=== PATIENT | female | born 1965 | race Caucasian/White ===

== ENCOUNTER → 2017-06-26 | Outpatient (CLI) | payer MEDICARE ==
[~2017-06-26] MED LIST: ALBU90OI INH; AMIT50 PO; AMIT75 PO; AMOCLA875 PO; Augmentin 875-1 EACH PO; CIPR750 PO; CLIN150 PO; DOXY100 PO; DULO60; GABA300 PO; HYDACE5 PO; IBUP800 PO; LORCET HD 10-31 EACH PO; MELO7.5 PO; MULVITMIND PO; NAPR550 PO; OXYB5 PO; Omeprazole20 M1; PRAV20 PO; PRED10 PO; PRED20 PO; Prilosec20 MG PO; Prozac20 MG PO
[2017-06-26 10:40] LABS: Alanine Aminotransfer (ALT/SGP 27 U/L (12-78); Albumin, Blood 3.9 g/dL (3.4-5.0); Alk Phos 154 U/L (50-136); Anion Gap 7 mmol/L (6-16); Aspartate Aminotrans (AST/SGOT 19 U/L (12-37); Bilirubin, Total 0.5 mg/dL (0.1-1.0); Blood Urea Nitrogen 13 mg/dL (8-24); Bun/Creatinine Ratio 19.6 (12.0-20.0); CHOL/HDL RATIO 3.4; CO2, Blood 27 mmol/L (21-32); Calcium, Blood 9.2 mg/dL (8.5-10.1); Chloride, Blood 105 mmol/L (98-108); Cholesterol 183 mg/dL (50-200); Creatinine, Blood 0.66 mg/dL (0.40-1.00); Globulin, Blood 3.8 g/dL (2.2-4.0); Glomerular Filtration Rate >60 (60-); Glucose, Blood 99 mg/dL (70-99); HDL Cholesterol 54 mg/dL (>39); LDL/HDL RATIO 1.9; Low Density Lipoprotein Chol 105 mg/dL (0-110); Potassium, Blood 4.3 mmol/L (3.5-5.5); Sodium, Blood 139 mmol/L (136-145); Total Protein, Blood 7.7 g/dL (6.4-8.2); Triglycerides 119 mg/dL (30-160); Very Low Density Lipoprot Chol 23 mg/dL (6-32)
== END | disposition home or self-care (01) ==
LOC: OLS 09:18
PROVIDERS: Physician Assistant
DX: R74.8 Abnormal levels of other serum enzymes (principal); R53.83 Other fatigue
CPT/HCPCS: 36415; 80053; 80061

== ENCOUNTER 2017-09-14 11:16 | Emergency (ER) | payer MEDICARE ==
[~2017-09-14] VITALS: Ht 167.6 cm; Wt 99.8 kg
== END 2017-09-14 13:15 | disposition home or self-care (01) ==
LOC: ER 11:16
DX: S63.501A Unspecified sprain of right wrist, initial encounter (principal); F17.210 Nicotine dependence, cigarettes, uncomplicated; Z88.5 Allergy status to narcotic agent; Z79.899 Other long term (current) drug therapy; Z79.1 Long term (current) use of non-steroidal anti-inflammatories (NSAID); W01.0XXA Fall on same level from slipping, tripping and stumbling without subsequent striking against object, initial encounter
CPT/HCPCS: 29125; 73110; 99283

== ENCOUNTER 2018-05-17 08:26 | Emergency (ER) | payer MEDICARE ==
[~2018-05-17] VITALS: Ht 167.6 cm; Wt 99.8 kg
[2018-05-17] MEDS ORDERED: TOLT4 PO (08:39)
[2018-05-17] MEDS ORDERED: IBUP400 PO (09:59)
[2018-05-17] MEDS ORDERED: Percocet 5-3251 EACH PO (09:59)
== END 2018-05-17 10:20 | disposition home or self-care (01) ==
LOC: ER 08:26
DX: M54.42 Lumbago with sciatica, left side (principal); M43.17 Spondylolisthesis, lumbosacral region; G89.29 Other chronic pain; M48.56XA Collapsed vertebra, not elsewhere classified, lumbar region, initial encounter for fracture; F17.210 Nicotine dependence, cigarettes, uncomplicated; Z88.5 Allergy status to narcotic agent; Z79.899 Other long term (current) drug therapy
CPT/HCPCS: 72100; 96372; 99283-25; J1170; J1885

== ENCOUNTER 2018-06-17 11:03 | Emergency (ER) | payer MEDICARE ==
[~2018-06-17] VITALS: Ht 167.6 cm; Wt 99.8 kg
[~2018-06-17 11:03] MED LIST changes: +IBUP400 PO; +Percocet 5-3251 EACH PO; +TOLT4 PO
[2018-06-17] MEDS ORDERED: Zantac150 MG PO (12:42)
[2018-06-17] MEDS ORDERED: TOLT4 PO (12:43)
[2018-06-17] MEDS ORDERED: CYCL10 PO (12:53)
[2018-06-17] MEDS ORDERED: Voltaren100 GM TOP (12:53)
[2018-06-17] MEDS ORDERED: HYDR1TAB94 PO (12:53)
== END 2018-06-17 13:00 | disposition home or self-care (01) ==
LOC: ER 11:03
DX: S30.0XXA Contusion of lower back and pelvis, initial encounter (principal); W00.0XXA Fall on same level due to ice and snow, initial encounter; Z88.5 Allergy status to narcotic agent; Z79.899 Other long term (current) drug therapy; Z79.891 Long term (current) use of opiate analgesic; F17.210 Nicotine dependence, cigarettes, uncomplicated
CPT/HCPCS: 72100; 72220; 99283-25

== ENCOUNTER 2018-08-29 08:52 | Inpatient (IN) | payer MEDICARE ==
[~2018-08-29] VITALS: Ht 167.6 cm; Wt 104.5 kg
[~2018-08-29 08:52] MED LIST changes: +CYCL10 PO; +HYDR1TAB94 PO; +Voltaren100 GM TOP; +Zantac150 MG PO
[2018-08-29 09:39] LABS: Hematocrit 33.6 % (33.0-51.0); Hemoglobin 11.5 g/dL (11.5-16.0); Mean Corpuscular HGB 33.7 pg (26.0-34.0); Mean Corpuscular HGB Conc 34.2 g/dL (31.5-36.5); Mean Corpuscular Volume 99 fL (80-100); Mean Platelet Volume 11.2 fL (9.1-12.4); Platelet Count 219 K/mm3 (150-400); RDW Coefficient Variation 12.9 % (11.7-14.2); RDW Standard Deviation 46.5 fL (35.1-46.3); Red Blood Cell Count 3.41 M/mm3 (3.80-5.20)
[2018-08-29 09:57] LABS: Albumin, Blood 2.9 g/dL (3.4-5.0); Albumin/Globulin Ratio 0.7 (0.8-1.8); Bun/Creatinine Ratio 22.6 (12.0-20.0); Calcium, Blood 8.8 mg/dL (8.5-10.1); Creatinine, Blood 1.06 mg/dL (0.40-1.00); Potassium, Blood 3.5 mmol/L (3.5-5.5); Total Protein, Blood 6.9 g/dL (6.4-8.2)
[2018-08-29 10:05] LABS: BAND PERCENT MAN 3 % (0-8); BASOPHILS PERCENT MAN 0 % (0-2); EOSINOPHILS ABSOLUTE MAN 0.32 K/mm3 (0.00-0.68); EOSINOPHILS PERCENT MAN 2 % (0-6); LYMPHOCYTES ABSOLUTE MAN 2.44 K/mm3 (0.84-5.20); LYMPHOCYTES PERCENT MAN 15 % (21-46); MONOCYTES ABSOLUTE MAN 0.48 K/mm3 (0.16-1.47); MONOCYTES PERCENT MAN 3 % (4-13); NEUTROPHILS ABSOLUTE MAN 13.04 K/mm3 (1.96-9.15); SEG NEUTROPHILS PERCENT MAN 77 % (41-73); TOTAL CELLS COUNTED 100
[2018-08-29] MEDS ORDERED: MELATONIN5 M1 PO (11:59)
[2018-08-29] MEDS ORDERED: NAPR500 PO (12:06)
[2018-08-29 16:14] LABS: Adenovirus F 40/41 Not Detected (NOT DETECT); Astrovirus Not Detected (NOT DETECT); Campylobacter Sp Not Detected (NOT DETECT); Cryptosporidium Not Detected (NOT DETECT); Cyclospora Cayetanensis Not Detected (NOT DETECT); E. Coli O157 Not Detected (NOT DETECT); Entamoeba Histolytica Not Detected (NOT DETECT); Enteroaggregative E. coli-EAEC Not Detected (NOT DETECT); Enteropathogenic E. coli-EPEC Not Detected (NOT DETECT); Enterotoxigenic E. coli-ETEC Not Detected (NOT DETECT); Giardia Lamblia Not Detected (NOT DETECT); Norovirus GI/GII Not Detected (NOT DETECT); Plesiomonas Shigelloides Not Detected (NOT DETECT); Rotavirus A Not Detected (NOT DETECT); Salmonella Sp Not Detected (NOT DETECT); Sapovirus Not Detected (NOT DETECT); Shiga Toxin-prod E. coli-STEC Not Detected (NOT DETECT); Shigella/Enteroin E. coli-EIEC Not Detected (NOT DETECT); Vibrio Cholerae Not Detected (NOT DETECT); Vibrio Sp Not Detected (NOT DETECT); Yersinia Enterocolitica Not Detected (NOT DETECT)
--- NOTE | 2018-08-29 16:27 | NUR ---
PATIENT ADMISSION THE PATIENT WAS ADMITTED FROM THE ER TO ROOM #328. THE PATIENT ARRIVED ON THE FLOOR AT 1150 VIA STRECHER. THE PATIENT WAS ADMITTED FOR COLITIS AND WAS EXPERIENCING ABDOMINAL PAIN. THE PATIENT'S VITALS WERE WNL, SHE WAS A&O X4 AND HER LUNG SOUNDS WERE DIMINISHED THROUGHOUT. THE PATIENT'S ADMISSION WA COMPLETED AT THAT TIME. THE PATIENT IS RESTING AT THIS TIME, WILL CONTINUE TO MONITOR.
[2018-08-30 04:48] LABS: Hematocrit 31.6 % (33.0-51.0); Hemoglobin 10.3 g/dL (11.5-16.0); Mean Corpuscular HGB 32.8 pg (26.0-34.0); Mean Corpuscular HGB Conc 32.6 g/dL (31.5-36.5); Mean Corpuscular Volume 101 fL (80-100); Mean Platelet Volume 11.3 fL (9.1-12.4); Platelet Count 205 K/mm3 (150-400); RDW Standard Deviation 47.8 fL (35.1-46.3); Red Blood Cell Count 3.14 M/mm3 (3.80-5.20); White Blood Cell Count 13.17 K/mm3 (4.00-11.30)
--- NOTE | 2018-08-30 04:58 | NUR ---
DR Bain updated on PTs hypotension last check and running low. Dilaudid decreased from 1 mg to 0.5 mg and give an additional liter of lactated ringers. PT voids large amts, stool culture negative. UA pending due to stool mixed with urine.
[2018-08-30 05:13] LABS: Anion Gap 7 mmol/L (6-16); Blood Urea Nitrogen 11 mg/dL (8-24); CO2, Blood 25 mmol/L (21-32); Calcium, Blood 8.1 mg/dL (8.5-10.1); Chloride, Blood 104 mmol/L (98-108); Creatinine, Blood 0.73 mg/dL (0.40-1.00); Glomerular Filtration Rate >60 (60-); Glucose, Blood 106 mg/dL (70-99); Potassium, Blood 3.4 mmol/L (3.5-5.5); Sodium, Blood 136 mmol/L (136-145)
[2018-08-30 17:07] LABS: Source, Urine Clean Catch
[2018-08-30 17:20] LABS: Bilirubin, Urine Neg (Neg); Blood, Urine 1+ (Neg); Glucose Qualitative, Urine Neg (Neg); Ketones, Urine Neg (Neg); Leukocyte Esterase, Urine Neg (Neg); Nitrite, Urine Neg (Neg); Protein, Urine Neg (Neg); Specific Gravity, Urine 1.005 (1.003-1.022); Urobilinogen, Urine NORM (Normal); pH, Urine 6.5 (5.0-8.0)
[2018-08-30 17:33] LABS: Appearance, Urine Clear (Clear); Color, Urine Yellow (P-Yellow)
[2018-08-30 17:34] LABS: Bacteria Rare /hpf; Red Blood Cells, Urine 0-2 /hpf (0-2); Squamous Epithelial Cells Few /hpf (Few); White Blood Cells, Urine Rare /hpf (0-5)
--- NOTE | 2018-08-30 19:23 | NUR ---
SHIFT SUMMARY KATEY IS RESTING IN BED WITH HER GRANDAUGHTER AT HER SIDE. SHE IS CALLS APPROPRIATELY BUT CONTINUES TO HAVE PROFUSE DIARRHEA. WE WERE ABLE TO OBATIN A URINE SAMPLE AND ARE AWAITING RESULT. SHE DOES CONTINUE TO HAVE ABDOMINAL PAIN FOR WHICH SHE HAS A HEATING PAD IN PLACE. WE SPOKE WITH HER ABOUT FURTHER PAIN MEDS, LETTING HER KNOW THAT NARCOTICS ARE BEING AVOIDED BECAUSE THEY WILL SLOW HER BOWELS DOWN. SHE SEEMS TO DO WELL WHEN RESTING. SHE DOES REQUIRE A STAND BY ASSIST TO USE THE RESTROOM.
--- NOTE | 2018-08-30 20:18 | NUR ---
08/30/182014 DISCONNECTED IV FLUIDS SO SHE COULD GO SMOKE OUTSIDE. ACCOMPANIED BY GRANDDAUGHTER.
[2018-08-31 05:32] LABS: Anion Gap 5 mmol/L (6-16); Blood Urea Nitrogen 6 mg/dL (8-24); Bun/Creatinine Ratio 8.6 (12.0-20.0); CO2, Blood 28 mmol/L (21-32); Calcium, Blood 8.4 mg/dL (8.5-10.1); Chloride, Blood 107 mmol/L (98-108); Glomerular Filtration Rate >60 (60-); Glucose, Blood 100 mg/dL (70-99); Potassium, Blood 3.6 mmol/L (3.5-5.5); Sodium, Blood 140 mmol/L (136-145)
--- NOTE | 2018-08-31 06:46 | NUR ---
08/31/18 0610 SLEEPING WITHOUT DISTRESS. VITALS STABLE.NO PAIN MEDICATION REQUIRED THIS SHIFT. UP TO BSC DURING NIGHT FOR VOIDINGS. UNEVENTFUL NIGHT.
[2018-08-31] MEDS ORDERED: CYCL10 PO (11:13)
[2018-08-31] MEDS ORDERED: VOLTAREN100 GM TOP (11:16)
[2018-08-31] MEDS ORDERED: Vsl#3 Capsule1 EACH PO (11:20)
[2018-08-31] MEDS ORDERED: Anti-Diarrheal2 MG PO (11:21)
[2018-08-31] MEDS ORDERED: Metamucil Smooth1 EA PO (11:22)
[2018-08-31] MEDS ORDERED: METF500 PO (11:23)
--- NOTE | 2018-08-31 11:57 | NUR ---
SHIFT SUMMARY/DC PT HAS HAD NO ACUTE CHANGES THIS SHIFT, NO ACOMPLAINTS OF ANY KIND. REVIEWED DC INSTRUCTIONS W/PT AT 1150, PT VERBALIZED UNDERSTANDING. PT IS DRESSING NOW WAITING FOR RIDE TO ARRIVE, WILL CONT TO MONITOR UNTIL DC'ED.
--- NOTE | 2018-08-31 15:07 | NUR ---
SHIFT SUMMARY/DC PT HAS HAD NO ACUTE CHANGES THIS SHIFT, BM'S HAVE BECOME LESS IN AMOUNT AND MORE FORMED. REVIEWED DC INSTRUCTIONS W/PT @ 1150, PT VERBALIZED UNDERSTANDING. AFTER LEAVING THE ROOM PT HAD A FALL (IRIS COMPLETED), THIS WAS REPORTED TO DR TYLER, NEW ORDERS WERE RECEIVED AND COMPLETED. AFTER FLUID BOLUS AND NEW SET OF VS COMPLETE, DR TYLER OK'D THE PT FOR DC. PT WAS EDUCATED ON THE IMPORTANCE OF INCREASED FLUID INTAKE & RETURNING TO ER IF SYMPTOMS BECOME WORSE. PT WAS TRANSPORTED VIA W/C TO DC IN PRIVATE VEHICLE @ 1500.
== END 2018-08-31 14:55 | disposition home or self-care (01) | DRG 392 ==
LOC: ER 08:52 → MEDS 08:53 → ENPENDDIS 08-31 10:30 → MEDS 08-31 14:55
PROVIDERS: Emergency Medicine; ADMIT Internal Medicine
DX: K52.9 Noninfective gastroenteritis and colitis, unspecified (principal); R65.10 Systemic inflammatory response syndrome (SIRS) of non-infectious origin without acute organ dysfunction; F17.210 Nicotine dependence, cigarettes, uncomplicated; M54.9 Dorsalgia, unspecified; E78.5 Hyperlipidemia, unspecified; G62.9 Polyneuropathy, unspecified; G89.29 Other chronic pain; K21.9 Gastro-esophageal reflux disease without esophagitis; I10 Essential (primary) hypertension
CPT/HCPCS: 36415; 74176; 80048; 80053; 81001; 83605; 83690; 85025; 85027; 87507; 96361; 96365; 96372; 96375; 96376; 99285-25; G0378; J0696; J1170; J1650; J1956; J2405; J7030; J7050; J7120

== ENCOUNTER 2018-12-17 07:02 | Emergency (ER) | payer MEDICARE, OTHER ==
[~2018-12-17] VITALS: Ht 167.6 cm; Wt 99.8 kg
[~2018-12-17 07:02] MED LIST changes: +Anti-Diarrheal2 MG PO; +MELATONIN5 M1 PO; +METF500 PO; +Metamucil Smooth1 EA PO; +NAPR500 PO; +VOLTAREN100 GM TOP; +Vsl#3 Capsule1 EACH PO
[2018-12-17] MEDS ORDERED: THERA1 EACH PO (07:46)
[2018-12-17] MEDS ORDERED: MELO7.5 PO (07:47)
[2018-12-17] MEDS ORDERED: L-LYSINE500 MG PO (07:47)
[2018-12-17] MEDS ORDERED: Robaxin-750750 MG PO (09:33)
[2018-12-17] MEDS ORDERED: HYDR1TAB94 PO (09:33)
== END 2018-12-17 09:51 | disposition home or self-care (01) ==
LOC: ER 07:02
DX: S30.0XXA Contusion of lower back and pelvis, initial encounter (principal); W01.0XXA Fall on same level from slipping, tripping and stumbling without subsequent striking against object, initial encounter; Z88.5 Allergy status to narcotic agent; Z79.899 Other long term (current) drug therapy; K21.9 Gastro-esophageal reflux disease without esophagitis; E78.5 Hyperlipidemia, unspecified; F17.210 Nicotine dependence, cigarettes, uncomplicated
CPT/HCPCS: 72100; 72170; 96372; 99283-25; J1885

== ENCOUNTER 2019-02-04 08:43 | Emergency (ER) | payer MEDICARE, OTHER ==
[~2019-02-04] VITALS: Ht 167.6 cm; Wt 104.3 kg
[~2019-02-04 08:43] MED LIST changes: +L-LYSINE500 MG PO; +Robaxin-750750 MG PO; +THERA1 EACH PO
[2019-02-04] MEDS ORDERED: HYDR1TAB94 PO (10:38)
[2019-02-04] MEDS ORDERED: Robaxin-750750 MG PO (10:38)
[2019-02-04] MEDS ORDERED: NAPR550 PO (10:38)
== END 2019-02-04 10:45 | disposition home or self-care (01) ==
LOC: ER 08:43
DX: S30.0XXA Contusion of lower back and pelvis, initial encounter (principal); W18.30XA Fall on same level, unspecified, initial encounter; Z88.5 Allergy status to narcotic agent; Z79.899 Other long term (current) drug therapy; K21.9 Gastro-esophageal reflux disease without esophagitis; E78.5 Hyperlipidemia, unspecified; F17.210 Nicotine dependence, cigarettes, uncomplicated
CPT/HCPCS: 72100; 73502; 96372; 99283-25; A9270-GY; J1885

== ENCOUNTER 2019-05-17 11:44 | Emergency (ER) | payer MEDICARE, OTHER ==
[~2019-05-17] VITALS: Ht 167.6 cm; Wt 104.3 kg
[2019-05-17] MEDS ORDERED: Norco 5-325 Ta1 EACH PO (13:26)
[2019-05-17] MEDS ORDERED: Robaxin-750750 MG PO (13:26)
== END 2019-05-17 13:34 | disposition home or self-care (01) ==
LOC: ER 11:44
DX: M54.5 Low back pain (principal); K21.9 Gastro-esophageal reflux disease without esophagitis; E78.5 Hyperlipidemia, unspecified; Z88.5 Allergy status to narcotic agent; Z79.899 Other long term (current) drug therapy; F17.210 Nicotine dependence, cigarettes, uncomplicated; W19.XXXA Unspecified fall, initial encounter
CPT/HCPCS: 72100; 96372; 99283-25; A9270-GY; J1885

== ENCOUNTER 2019-08-09 12:45 | Emergency (ER) | payer MEDICARE ==
[~2019-08-09] VITALS: Ht 167.6 cm; Wt 110.7 kg
[~2019-08-09 12:45] MED LIST changes: +ATOR20; +Norco 5-325 Ta1 EACH PO; +TOLT4
[2019-08-09] MEDS ORDERED: HYDR1TAB94 PO (14:22)
[2019-08-09] MEDS ORDERED: Robaxin-750750 MG PO (14:22)
== END 2019-08-09 14:46 | disposition home or self-care (01) ==
LOC: ER 12:45
DX: M54.5 Low back pain (principal); G89.29 Other chronic pain; K21.9 Gastro-esophageal reflux disease without esophagitis; E78.5 Hyperlipidemia, unspecified; Z88.5 Allergy status to narcotic agent; Z79.899 Other long term (current) drug therapy; Z87.891 Personal history of nicotine dependence; W19.XXXA Unspecified fall, initial encounter
CPT/HCPCS: 72100; 96372; 99283-25; J1885

== ENCOUNTER 2019-08-21 09:12 | Emergency (ER) | payer MEDICARE ==
[~2019-08-21] VITALS: Ht 167.6 cm; Wt 106.6 kg
[2019-08-21] MEDS ORDERED: ACETAMINOPHEN500 MG PO (12:16)
[2019-08-21] MEDS ORDERED: Robaxin-750750 MG PO (12:16)
[2019-08-21] MEDS ORDERED: KETO10 PO (12:16)
== END 2019-08-21 12:42 | disposition home or self-care (01) ==
LOC: ER 09:12
DX: M54.41 Lumbago with sciatica, right side (principal); G89.29 Other chronic pain; G62.9 Polyneuropathy, unspecified; K21.9 Gastro-esophageal reflux disease without esophagitis; Z87.891 Personal history of nicotine dependence; Z88.5 Allergy status to narcotic agent; Z79.899 Other long term (current) drug therapy
CPT/HCPCS: 96372; 99283-25; J1885

== ENCOUNTER 2020-04-11 10:39 | Emergency (ER) | payer MEDICARE ==
[~2020-04-11] VITALS: Ht 167.6 cm; Wt 104.3 kg
[~2020-04-11 10:39] MED LIST changes: +ACETAMINOPHEN500 MG PO; +KETO10 PO
[2020-04-11] MEDS ORDERED: Norco 5-325 Ta1 EACH PO (11:48)
== END 2020-04-11 12:27 | disposition home or self-care (01) ==
LOC: ER 10:39
DX: S22.42XA Multiple fractures of ribs, left side, initial encounter for closed fracture (principal); M25.532 Pain in left wrist; K21.9 Gastro-esophageal reflux disease without esophagitis; E78.5 Hyperlipidemia, unspecified; Z87.891 Personal history of nicotine dependence; Z88.5 Allergy status to narcotic agent; Z79.899 Other long term (current) drug therapy; W01.0XXA Fall on same level from slipping, tripping and stumbling without subsequent striking against object, initial encounter
CPT/HCPCS: 29125; 71101; 73100; 99283-25; A9270-GY

== ENCOUNTER 2020-09-03 11:33 | Inpatient (IN) | payer MEDICARE ==
[~2020-09-03] VITALS: Ht 167.6 cm; Wt 89.7 kg
[~2020-09-03 11:33] MED LIST changes: -AMIT50 PO; +AMITRIPTYLINE150 M1 PO; -ATOR20; +ATOR40TA PO; +DULO30 PO; -DULO60
[2020-09-03 12:40] LABS: Source, Urine Clean Catch
[2020-09-03 12:43] LABS: Mean Corpuscular HGB 31.4 pg (26.0-34.0); Mean Corpuscular HGB Conc 34.2 g/dL (31.5-36.5); Mean Corpuscular Volume 92 fL (80-100); Mean Platelet Volume 10.6 fL (9.1-12.4); Platelet Count 350 K/mm3 (150-400); RDW Coefficient Variation 14.1 % (11.7-14.2); RDW Standard Deviation 47.9 fL (35.1-46.3); Red Blood Cell Count 4.14 M/mm3 (3.80-5.20); White Blood Cell Count 14.19 K/mm3 (4.00-11.30)
[2020-09-03 12:45] LABS: Appearance, Urine Hazy (Clear); Bilirubin, Urine Neg (Neg); Blood, Urine 1+ (Neg); Color, Urine Yellow (P-Yellow); Glucose Qualitative, Urine Neg (Neg); Ketones, Urine Neg (Neg); Leukocyte Esterase, Urine 2+ (Neg); Nitrite, Urine Neg (Neg); Protein, Urine 1+ (Neg); Specific Gravity, Urine 1.015 (1.003-1.022); Urobilinogen, Urine NORM (Normal)
[2020-09-03 12:57] LABS: Bacteria Mod /hpf; Red Blood Cells, Urine 0-2 /hpf (0-2); Squamous Epithelial Cells Many /hpf (Few)
[2020-09-03 13:02] LABS: Alanine Aminotransfer (ALT/SGP 48 U/L (12-78); Albumin, Blood 2.5 g/dL (3.4-5.0); Albumin/Globulin Ratio 0.5 (0.8-1.8); Alk Phos 241 U/L (50-136); Anion Gap 8 mmol/L (6-16); Aspartate Aminotrans (AST/SGOT 72 U/L (12-37); Bilirubin, Total 0.9 mg/dL (0.1-1.0); Blood Urea Nitrogen 44 mg/dL (8-24); Bun/Creatinine Ratio 44.7 (12.0-20.0); CO2, Blood 24 mmol/L (21-32); Calcium, Blood 9.1 mg/dL (8.5-10.1); Chloride, Blood 88 mmol/L (98-108); Creatinine, Blood 0.99 mg/dL (0.40-1.00); Globulin, Blood 5.2 g/dL (2.2-4.0); Glomerular Filtration Rate >60 (60-); Glucose, Blood 128 mg/dL (70-99); Potassium, Blood 3.8 mmol/L (3.5-5.5); Sodium, Blood 120 mmol/L (136-145); Total Protein, Blood 7.7 g/dL (6.4-8.2)
[2020-09-03] MEDS ORDERED: TOLTERODINE TART4 MG PO (13:02)
[2020-09-03 13:14] LABS: BAND PERCENT MAN 11 % (0-8); BASOPHILS PERCENT MAN 0 % (0-2); EOSINOPHILS ABSOLUTE MAN 0.14 K/mm3 (0.00-0.68); EOSINOPHILS PERCENT MAN 1 % (0-6); LYMPHOCYTES ABSOLUTE MAN 1.84 K/mm3 (0.84-5.20); LYMPHOCYTES PERCENT MAN 13 % (21-46); MONOCYTES PERCENT MAN 5 % (4-13); NEUTROPHILS ABSOLUTE MAN 11.49 K/mm3 (1.96-9.15); SEG NEUTROPHILS PERCENT MAN 70 % (41-73); TOTAL CELLS COUNTED 100
[2020-09-03 13:54] LABS: Influenza A, PCR NEGATIVE (NEGATIVE); Influenza B, PCR NEGATIVE (NEGATIVE); Resp Syncytial Virus, PCR NEGATIVE (NEGATIVE); SARS-Cov-2 (COVID-19) PCR, MMC NEGATIVE (NEGATIVE)
[2020-09-03] MEDS ORDERED: HYDROCODONE-AC1 EA10 PO (16:11)
[2020-09-03 18:33] LABS: Adenovirus F 40/41 Not Detected (NOT DETECT); Astrovirus Not Detected (NOT DETECT); Campylobacter Sp Not Detected (NOT DETECT); Cryptosporidium Not Detected (NOT DETECT); Cyclospora Cayetanensis Not Detected (NOT DETECT); E. Coli O157 Not Detected (NOT DETECT); Entamoeba Histolytica Not Detected (NOT DETECT); Enteroaggregative E. coli-EAEC Not Detected (NOT DETECT); Enteropathogenic E. coli-EPEC Not Detected (NOT DETECT); Enterotoxigenic E. coli-ETEC Not Detected (NOT DETECT); Giardia Lamblia Not Detected (NOT DETECT); Norovirus GI/GII Not Detected (NOT DETECT); Plesiomonas Shigelloides Not Detected (NOT DETECT); Rotavirus A Not Detected (NOT DETECT); Salmonella Sp Not Detected (NOT DETECT); Sapovirus Not Detected (NOT DETECT); Shiga Toxin-prod E. coli-STEC Not Detected (NOT DETECT); Shigella/Enteroin E. coli-EIEC Not Detected (NOT DETECT); Vibrio Cholerae Not Detected (NOT DETECT); Vibrio Sp Not Detected (NOT DETECT); Yersinia Enterocolitica Not Detected (NOT DETECT)
--- NOTE | 2020-09-03 19:31 | NUR ---
AWAKE, RECEIVED PAIN MED FROM AM SHIFT. CALL LIGHT IN REACH.
--- NOTE | 2020-09-04 04:13 | NUR ---
SECONDARY SPECIAL EDUCATION TEACHER SUMMARY PT SLEPT THROUGHOUT DURATION OF SHIFT, INDEPENDENT IN REPOSITIONING. PT CONTINUES TO HAVE LOOSE BROWN BOWEL MOVEMENTS, NO COMPLAINTS OF N/V. AOX4. WILL CONTINUE TO MONITOR.
[2020-09-04 04:54] LABS: Hematocrit 31.8 % (33.0-51.0); Hemoglobin 10.7 g/dL (11.5-16.0); Mean Corpuscular HGB 31.4 pg (26.0-34.0); Mean Corpuscular HGB Conc 33.6 g/dL (31.5-36.5); Mean Corpuscular Volume 93 fL (80-100); Mean Platelet Volume 10.4 fL (9.1-12.4); Platelet Count 257 K/mm3 (150-400); RDW Coefficient Variation 13.9 % (11.7-14.2); RDW Standard Deviation 47.9 fL (35.1-46.3); Red Blood Cell Count 3.41 M/mm3 (3.80-5.20)
[2020-09-04 05:11] LABS: Anion Gap 7 mmol/L (6-16); Blood Urea Nitrogen 21 mg/dL (8-24); Bun/Creatinine Ratio 31.8 (12.0-20.0); CO2, Blood 23 mmol/L (21-32); Calcium, Blood 8.1 mg/dL (8.5-10.1); Chloride, Blood 99 mmol/L (98-108); Creatinine, Blood 0.66 mg/dL (0.40-1.00); Glomerular Filtration Rate >60 (60-); Glucose, Blood 114 mg/dL (70-99); Potassium, Blood 3.7 mmol/L (3.5-5.5); Sodium, Blood 129 mmol/L (136-145)
[2020-09-04 05:36] LABS: BAND PERCENT MAN 8 % (0-8); BASOPHILS PERCENT MAN 0 % (0-2); EOSINOPHILS ABSOLUTE MAN 0.08 K/mm3 (0.00-0.68); EOSINOPHILS PERCENT MAN 1 % (0-6); LYMPHOCYTES ABSOLUTE MAN 1.05 K/mm3 (0.84-5.20); LYMPHOCYTES PERCENT MAN 13 % (21-46); METAMYELOCYTE ABSOLUTE MAN 0.08 K/mm3 (0.00-0.00); METAMYELOCYTE PERCENT MAN 1 % (0-0); MONOCYTES ABSOLUTE MAN 0.72 K/mm3 (0.16-1.47); MONOCYTES PERCENT MAN 9 % (4-13); MYELOCYTE ABSOLUTE MAN 0.16 K/mm3 (0.00-0.00); MYELOCYTE PERCENT MAN 2 % (0-0); NEUTROPHILS ABSOLUTE MAN 5.99 K/mm3 (1.96-9.15); SEG NEUTROPHILS PERCENT MAN 66 % (41-73); TOTAL CELLS COUNTED 100
--- NOTE | 2020-09-04 18:29 | NUR ---
SHIFT SUMMARY PT AOX4; PT MEDICATED FOR PAIN PER EMAR. PT STILL HAS SOME LOOSE STOOL AND C/O ABD DISCOMFORT. NO APPARENT DISTRESS. BED IS IN THE LOWEST POSITION AND CALL LIGHT WITHIN REACH
--- NOTE | 2020-09-04 19:19 | NUR ---
I AGREE WITH DOCUMENTATION OF FLARE STITCHER BECKY MYERS 09/03-. IGNACIA CAVANAUGH RN
--- NOTE | 2020-09-05 02:52 | NUR ---
PYROMETER TEMPERATURE REGULATOR SUMMARY PT AOX4. C/O CHRONIC PAIN, MEDICATED PER EMAR. PT CONTINUES TO HAVE LOOSE STOOLS AND COPIOUS FLATUS. NO NOTABLE DISTRESS. SLEEPING MOST OF THE NIGHT. VITAL SIGNS STABLE. WILL CONTINUE TO MONITOR.
[2020-09-05 08:30] LABS: Hematocrit 29.8 % (33.0-51.0); Hemoglobin 9.8 g/dL (11.5-16.0)
[2020-09-05 08:52] LABS: Anion Gap 6 mmol/L (6-16); Blood Urea Nitrogen 9 mg/dL (8-24); Bun/Creatinine Ratio 15.2 (12.0-20.0); CO2, Blood 23 mmol/L (21-32); Calcium, Blood 7.7 mg/dL (8.5-10.1); Chloride, Blood 102 mmol/L (98-108); Creatinine, Blood 0.59 mg/dL (0.40-1.00); Glomerular Filtration Rate >60 (60-); Glucose, Blood 114 mg/dL (70-99); Potassium, Blood 3.7 mmol/L (3.5-5.5); Sodium, Blood 131 mmol/L (136-145)
--- NOTE | 2020-09-05 18:19 | NUR ---
A+O, ASKED TO STAY THE NIGHT TO SEE HOW SHE REACTS TO THE NEW DIET, ABDMN PAIN HAS BEEN CONSTANT FOR THE WHOLE SHIFT, MEDICATED PRESCRIBED, CALL LIGHT IN REACH, ABX INFUSING WITH NO S/SX OF INFECTION OR INFILTRATION, RM AIR, ABLE TO WALK TO THE BATHROOM WITH SBA TO CARE FOR CABLES, WILL CONTINUE TO MONITOR AND TREAT UNTIL SHARE BSR WITH NOC NURSE AND PT
--- NOTE | 2020-09-05 18:27 | NUR ---
DR STOPPED BY TO SAY SHE COULD HAVE A REGULAR DIET AND THAT IF SHE WANTED IT IMODIUM
--- NOTE | 2020-09-05 21:28 | NUR ---
I AGREE WITH DOCUMENTATION OF BECKY MYERS PIECE MEAT TRIMMER. RUSTY CAVANAUGH RN
--- NOTE | 2020-09-06 00:23 | NUR ---
PT UP TO BATHROOM WITH SBA. NONSKID SOCKS APPLIED TO HELP PREVENT FALL. BACK TO BED WITH NO ISSUES. CALL LIGHT IN REACH. PT DOES COMPLAIN OF PAIN RETURNING AFTER MEDICATION, PER MAR NEXT ADMINISTRATION IS NOT YET DUE. WILL CONTINUE TO MONITOR.
--- NOTE | 2020-09-06 03:12 | NUR ---
SALVAGE DIVER SUMMARY PATIENT ALERT AND ORIENTED X 4. VITAL SIGNS STABLE. PT GIVEN ANTIDIARRHEAL PER EMAR AND REPORTS IMPROVEMENT. MEDICATED PER MAR FOR CHRONIC BACK PAIN. SLEPT FOR MOST OF NIGHT. PATIENT IS TOLERATING DIET ADVANCEMENT TO REGULAR ADULT. NO INCIDENCE OF N/V. NO ACUTE COMPLAINTS AT THIS TIME OR DISTRESS. WILL CONTINUE TO MONITOR.
[2020-09-06 05:13] LABS: Hematocrit 27.4 % (33.0-51.0); Hemoglobin 8.9 g/dL (11.5-16.0); Mean Corpuscular HGB 31.4 pg (26.0-34.0); Mean Corpuscular HGB Conc 32.5 g/dL (31.5-36.5); Mean Corpuscular Volume 97 fL (80-100); Mean Platelet Volume 10.4 fL (9.1-12.4); Platelet Count 233 K/mm3 (150-400); RDW Coefficient Variation 14.1 % (11.7-14.2); RDW Standard Deviation 50.1 fL (35.1-46.3); Red Blood Cell Count 2.83 M/mm3 (3.80-5.20)
[2020-09-06 05:52] LABS: Anion Gap 4 mmol/L (6-16); Blood Urea Nitrogen 6 mg/dL (8-24); Bun/Creatinine Ratio 10.8 (12.0-20.0); CO2, Blood 26 mmol/L (21-32); Calcium, Blood 7.4 mg/dL (8.5-10.1); Chloride, Blood 106 mmol/L (98-108); Creatinine, Blood 0.56 mg/dL (0.40-1.00); Glomerular Filtration Rate >60 (60-); Glucose, Blood 81 mg/dL (70-99); Potassium, Blood 3.6 mmol/L (3.5-5.5); Sodium, Blood 136 mmol/L (136-145)
--- NOTE | 2020-09-06 05:55 | NUR ---
I AGREE WITH DOCUMENTATION OF BECKY MYERS STUDENT NURSE. RUSTY CAVANAUGH RN
[2020-09-06] MEDS ORDERED: AMOCLA875 PO (11:10)
--- NOTE | 2020-09-06 13:39 | NUR ---
PT RESTING QUIETLY AT START OF SHIFT. LATER UP INDEPENDENTLY TO [facility]. REQUESTED PAIN MED FOR CHRONIC BACK PAIN. PT WANTING TO GO HOME TODAY. DR ARGUETA IN TO SEE PT AFTER BREAKFAST. D/C ORDERS PLACED. PT UP TO SHOWER WITH ASSIST FROM REBECA. RANDY AND CO-OP WITH CARE. REPORTED IMODIUM THAT WAS GIVEN YESTERDAY WAS EFFECTIVE. D/C ORDERS AND INSTRUCTIONS DISCUSSED WITH PT. MEDS FAXED TO [facility], PER PT REQUEST. PT ASSISTED OUT VIA W/C, WHEN HER DAD ARRIVED TO PICK HER UP.
== END 2020-09-06 12:05 | disposition home or self-care (01) | DRG 392 ==
LOC: ER 11:33 → MEDS 16:26
PROVIDERS: Emergency Medicine; Internal Medicine; Physician Assistant; ADMIT Internal Medicine
DX: K52.9 Noninfective gastroenteritis and colitis, unspecified (principal); E87.1 Hypo-osmolality and hyponatremia; F11.20 Opioid dependence, uncomplicated; I10 Essential (primary) hypertension; Z20.822 Contact with and (suspected) exposure to COVID-19; D64.9 Anemia, unspecified; G89.29 Other chronic pain; F32.9 Major depressive disorder, single episode, unspecified; K21.9 Gastro-esophageal reflux disease without esophagitis; E78.5 Hyperlipidemia, unspecified; G47.00 Insomnia, unspecified; F12.10 Cannabis abuse, uncomplicated; Z90.49 Acquired absence of other specified parts of digestive tract; Z98.890 Other specified postprocedural states; Z79.899 Other long term (current) drug therapy; M19.90 Unspecified osteoarthritis, unspecified site; K58.9 Irritable bowel syndrome, unspecified
CPT/HCPCS: 0097U; 0241U; 36415; 74177; 80048; 80053; 81001; 83690; 85014; 85018; 85025; 85027; 85651; 87086; 96361; 96365; 96366; 96367; 99285-25; A9270; A9270-GY; J0295; J1650; J2060; J2543; J7030; Q9967

== ENCOUNTER → 2020-10-13 | Outpatient (CLI) | payer MEDICARE, OTHER ==
[~2020-10-13] MED LIST changes: +HYDROCODONE-AC1 EA10 PO; +MELATONIN1010 PO; +MULTI-VITAMIN1 EAC2 PO; +TOLTERODINE TART4 MG PO
== END | disposition home or self-care (01) ==
LOC: LAB SHORT 12:00 → LAB 12:00
PROVIDERS: Nurse Practitioner Family
DX: Z12.4 Encounter for screening for malignant neoplasm of cervix (principal); Z11.51 Encounter for screening for human papillomavirus (HPV)
CPT/HCPCS: G0123

== ENCOUNTER 2020-10-19 11:42 | Day surgery (SDC) | payer MEDICARE ==
[~2020-10-19] VITALS: Ht 167.6 cm; Wt 90.0 kg
== END 2020-10-19 14:20 | disposition home or self-care (01) ==
LOC: ORSCSDS 11:42
PROVIDERS: Internal Medicine Gastroenterology
PROC: 0DBE8ZX Excision of Large Intestine, Via Natural or Artificial Opening Endoscopic, Diagnostic (ICD-10-PCS; principal; 2020-10-19 13:00)
DX: K52.9 Noninfective gastroenteritis and colitis, unspecified (principal); K57.30 Diverticulosis of large intestine without perforation or abscess without bleeding; K64.1 Second degree hemorrhoids; Z87.891 Personal history of nicotine dependence; Z79.899 Other long term (current) drug therapy
CPT/HCPCS: 88305; J2704; J7120

== ENCOUNTER 2020-12-13 09:55 | Inpatient (IN) | payer MEDICARE, OTHER ==
[~2020-12-13] VITALS: Ht 167.6 cm; Wt 90.3 kg
[2020-12-13 10:52] LABS: BASOPHILS ABSOLUTE AUTO 0.04 K/mm3 (0.00-0.23); BASOPHILS PERCENT AUTO 0 % (0-2); EOSINOPHILS ABSOLUTE AUTO 0.14 K/mm3 (0.00-0.68); EOSINOPHILS PERCENT AUTO 1 % (0-6); Hematocrit 32.5 % (33.0-51.0); Hemoglobin 10.6 g/dL (11.5-16.0); IMMATURE GRAN ABSOLUTE AUTO 0.14 K/mm3 (0.00-0.10); IMMATURE GRAN PERCENT AUTO 1 % (0-1); LYMPHOCYTES ABSOLUTE AUTO 5.72 K/mm3 (0.84-5.20); LYMPHOCYTES PERCENT AUTO 27 % (21-46); MONOCYTES ABSOLUTE AUTO 0.74 K/mm3 (0.16-1.47); MONOCYTES PERCENT AUTO 4 % (4-13); Mean Corpuscular HGB 31.2 pg (26.0-34.0); Mean Corpuscular HGB Conc 32.6 g/dL (31.5-36.5); Mean Corpuscular Volume 96 fL (80-100); NEUTROPHILS ABSOLUTE AUTO 14.54 K/mm3 (1.96-9.15); NEUTROPHILS PERCENT AUTO 68 % (41-73); Platelet Count 368 K/mm3 (150-400); RDW Coefficient Variation 13.8 % (11.7-14.2); RDW Standard Deviation 48.5 fL (35.1-46.3); White Blood Cell Count 21.32 K/mm3 (4.00-11.30)
[2020-12-13 12:06] LABS: Albumin/Globulin Ratio 0.8 (0.8-1.8); Alk Phos 141 U/L (50-136); Anion Gap 5 mmol/L (6-16); Aspartate Aminotrans (AST/SGOT 12 U/L (12-37); Bilirubin, Total 0.2 mg/dL (0.1-1.0); Blood Urea Nitrogen 17 mg/dL (8-24); Bun/Creatinine Ratio 21.4 (12.0-20.0); CO2, Blood 28 mmol/L (21-32); Chloride, Blood 106 mmol/L (98-108); Globulin, Blood 3.6 g/dL (2.2-4.0); Glomerular Filtration Rate >60 (60-); Glucose, Blood 143 mg/dL (70-99); Potassium, Blood 3.8 mmol/L (3.5-5.5); Sodium, Blood 139 mmol/L (136-145); Total Protein, Blood 6.6 g/dL (6.4-8.2); Troponin I <0.015 ng/mL (0.000-0.040)
[2020-12-13 12:17] LABS: Alanine Aminotransfer (ALT/SGP 35 U/L (12-78)
[2020-12-13 22:47] LABS: Source, Urine Clean Catch
[2020-12-13 22:48] LABS: Appearance, Urine Clear (Clear); Bilirubin, Urine Neg (Neg); Blood, Urine Neg (Neg); Color, Urine Yellow (P-Yellow); Glucose Qualitative, Urine Neg (Neg); Ketones, Urine Neg (Neg); Leukocyte Esterase, Urine Neg (Neg); Nitrite, Urine Neg (Neg); Protein, Urine 1+ (Neg); Urobilinogen, Urine NORM (Normal)
[2020-12-13 23:10] LABS: BASOPHILS ABSOLUTE AUTO 0.04 K/mm3 (0.00-0.23); BASOPHILS PERCENT AUTO 0 % (0-2); EOSINOPHILS ABSOLUTE AUTO 0.11 K/mm3 (0.00-0.68); EOSINOPHILS PERCENT AUTO 0 % (0-6); Mean Corpuscular HGB 30.5 pg (26.0-34.0); Mean Corpuscular HGB Conc 30.9 g/dL (31.5-36.5); Mean Corpuscular Volume 99 fL (80-100); Mean Platelet Volume 10.6 fL (9.1-12.4); Platelet Count 321 K/mm3 (150-400); RDW Coefficient Variation 14.6 % (11.7-14.2); RDW Standard Deviation 51.5 fL (35.1-46.3); Red Blood Cell Count 1.54 M/mm3 (3.80-5.20); White Blood Cell Count 26.89 K/mm3 (4.00-11.30)
[2020-12-13 23:11] LABS: IMMATURE GRAN ABSOLUTE AUTO 0.65 K/mm3 (0.00-0.10); IMMATURE GRAN PERCENT AUTO 2 % (0-1); LYMPHOCYTES ABSOLUTE AUTO 7.69 K/mm3 (0.84-5.20); LYMPHOCYTES PERCENT AUTO 29 % (21-46); MONOCYTES ABSOLUTE AUTO 1.28 K/mm3 (0.16-1.47); MONOCYTES PERCENT AUTO 5 % (4-13); NEUTROPHILS ABSOLUTE AUTO 17.12 K/mm3 (1.96-9.15); NEUTROPHILS PERCENT AUTO 64 % (41-73)
[2020-12-13 23:12] LABS: Hematocrit 15.2 % (33.0-51.0); Hemoglobin 4.7 g/dL (11.5-16.0)
[2020-12-13 23:23] LABS: Anion Gap 8 mmol/L (6-16); Blood Urea Nitrogen 40 mg/dL (8-24); Bun/Creatinine Ratio 48.3 (12.0-20.0); CO2, Blood 22 mmol/L (21-32); Calcium, Blood 7.7 mg/dL (8.5-10.1); Chloride, Blood 108 mmol/L (98-108); Creatinine, Blood 0.83 mg/dL (0.40-1.00); Glomerular Filtration Rate >60 (60-); Glucose, Blood 256 mg/dL (70-99); Potassium, Blood 4.9 mmol/L (3.5-5.5); Sodium, Blood 138 mmol/L (136-145)
[2020-12-13 23:31] LABS: International Normalized Ratio 1.12
[2020-12-13 23:35] LABS: BAND PERCENT MAN 2 % (0-8); BASOPHILS PERCENT MAN 0 % (0-2); EOSINOPHILS PERCENT MAN 0 % (0-6); LYMPHOCYTES ABSOLUTE MAN 6.99 K/mm3 (0.84-5.20); LYMPHOCYTES PERCENT MAN 26 % (21-46); MONOCYTES PERCENT MAN 0 % (4-13); NEUTROPHILS ABSOLUTE MAN 19.89 K/mm3 (1.96-9.15); SEG NEUTROPHILS PERCENT MAN 72 % (41-73); TOTAL CELLS COUNTED 100
--- NOTE | 2020-12-14 02:40 | NUR ---
PT IN ICU. PROCEDURE WILL BE DONE AT BEDSIDE. History, Chart, Medications and Allergies reviewed before start of procedure.Patient confirms NPO status and agrees with scheduled surgery. Lungs clear T/O to Auscultation.PT ALERT/ORIENTED.
--- NOTE | 2020-12-14 02:55 | NUR ---
PT ARRIVES TO ICU ROOM 10, ALERT AND ORIENTED, BEGINS COMPLAINING OF IT BEING VERY HOT, PT DIAPHORETIC, COMPLAINS OF ABDOMINAL PAIN, FULLNESS. HEART RATE 130, BP STABLE, NOT ON PRESSORS AT THIS TIME, DOMINGO TEMP PROBE HOOKED UP TO MONITOR AND SHOWS 103.1. FIELD SERVICE CONSULTANT AWARE, CONCERN FOR REACTION TO RAPID INFUSION OF BLOOD, TRACKING DOWN BLOOD TRANSFUSION RECORDS, CREW HERE TO START EGD WITH , WITH PATIENT WELL.
--- NOTE | 2020-12-14 03:00 | NUR ---
12/14/20 0300 RaquelAngelika R History, Chart, Medications and Allergies reviewed before start of procedure.Patient confirms NPO status and agrees with scheduled surgery.3-LEAD EKG REVIEWED WITH PHYSICIAN PRIOR TO START OF PROCEDURE.MONITOR INTACT WITH CONTINUOUS PULSE OXIMETRY AND INTERMITTENT BP.O2 VIA N/C INTACT THROUGHOUT SEDATION/PROCEDURE. PATIENT DETERMINED TO BE ASA APPROPRIATE FOR PROPOFOL SEDATION PRIOR TO START OF PROCEDURE BY DR. RUEDA
[2020-12-14 04:38] LABS: Hematocrit 26.1 % (33.0-51.0); Hemoglobin 8.9 g/dL (11.5-16.0)
[2020-12-14 04:40] LABS: Base Excess Venous -2.3 mmol/L; Bicarbonate Venous 22.4 mmol/L (24.0-30.0); PCO2 Venous 43.7 mmHg (38-42); pH Blood Venous 7.34 (7.34-7.37)
[2020-12-14 04:44] LABS: Hematocrit 26.2 % (33.0-51.0); Hemoglobin 8.9 g/dL (11.5-16.0); Mean Corpuscular HGB 30.8 pg (26.0-34.0); Mean Platelet Volume 10.3 fL (9.1-12.4); NRBC ABSOLUTE 0.08 K/mm3 (0.00-0.02); NRBC Auto 0.3 /100 WBC (0.0-0.2); Platelet Count 220 K/mm3 (150-400); RDW Coefficient Variation 16.2 % (11.7-14.2); RDW Standard Deviation 53.3 fL (35.1-46.3); Red Blood Cell Count 2.89 M/mm3 (3.80-5.20); White Blood Cell Count 27.97 K/mm3 (4.00-11.30)
[2020-12-14 04:49] LABS: Mean Corpuscular Volume 91 fL (80-100)
[2020-12-14 04:54] LABS: Albumin, Blood 1.9 g/dL (3.4-5.0); Anion Gap 7 mmol/L (6-16); Blood Urea Nitrogen 48 mg/dL (8-24); Bun/Creatinine Ratio 55.2 (12.0-20.0); CO2, Blood 24 mmol/L (21-32); Calcium, Blood 7.7 mg/dL (8.5-10.1); Chloride, Blood 111 mmol/L (98-108); Creatinine, Blood 0.87 mg/dL (0.40-1.00); Glomerular Filtration Rate >60 (60-); Glucose, Blood 168 mg/dL (70-99); Phosphorus, Blood 4.1 mg/dL (2.5-4.9); Potassium, Blood 4.4 mmol/L (3.5-5.5); Sodium, Blood 142 mmol/L (136-145)
[2020-12-14 05:45] LABS: BAND PERCENT MAN 16 % (0-8); BASOPHILS PERCENT MAN 0 % (0-2); EOSINOPHILS PERCENT MAN 0 % (0-6); LYMPHOCYTES ABSOLUTE MAN 4.75 K/mm3 (0.84-5.20); LYMPHOCYTES PERCENT MAN 17 % (21-46); METAMYELOCYTE ABSOLUTE MAN 0.27 K/mm3 (0.00-0.00); METAMYELOCYTE PERCENT MAN 1 % (0-0); MONOCYTES ABSOLUTE MAN 1.39 K/mm3 (0.16-1.47); MONOCYTES PERCENT MAN 5 % (4-13); MYELOCYTE ABSOLUTE MAN 0.55 K/mm3 (0.00-0.00); MYELOCYTE PERCENT MAN 2 % (0-0); NEUTROPHILS ABSOLUTE MAN 20.97 K/mm3 (1.96-9.15); SEG NEUTROPHILS PERCENT MAN 59 % (41-73); TOTAL CELLS COUNTED 100
--- NOTE | 2020-12-14 05:57 | NUR ---
PT TOLERATED HER PROCEDURE WELL, 2 UNITS OF PRBC'S INFUSED, BLOOD DRAWN, PT POSITION CHANGED, ATTEMPT TO USE BEDPAN-UNSUCCESSFUL, MINERAL OIL ENEMA GIVEN PER ORDERS, NO RESULTS YET. PT IS PUSHING AND TRYING HARD TO HAVE A BM THAT SHE STATES HER STOMACH IS HURTING AND SHE IS WRETCHING SOME. ENCOURAGED TO TAKE IT EASY AND LET THE ENEMA WORK, NOT TO PUSH OR FORCE SHE COULD CAUSE REBLEEDING. SHE IS SPITTING UP BROWN RETURN, NO FULL ON VOMITUS. IV OF LR @ 125ML/HR INFUSING, PROTONIX @ 10 ML, LEVOPHED @ 10 MCG, VASOPRESSIN @ 0.04. DOMINGO TO GRAVITY DRAINAGE WITH LESS THAN 300ML OUTPUT.
--- NOTE | 2020-12-14 06:54 | NUR ---
KATEY CONTINUES TO CHOMP ON ICE CHIPS, OK'D BY . MEDICATED WITH FENTANYL 25 MCG FOR PAIN RELIEF, TOLERATED WELL. LYING ON HER SIDE, PRONTONIX CONTINUES, LEVOPHED CONTINUES, VASOPRESSIN CONTINUES, BP'S CONTINUE TO BE LABILE. CURRENTLY MAP OF 67.
--- NOTE | 2020-12-14 07:30 | NUR ---
PT AROUSABLE, AND ORIENTED WHEN AWAKE, BUT APPEARS TO FALL ASLEEP WHEN NO DISTURBED. PT REPORTS 9/10 ABDOMINAL PAIN AND NAUSEA. TEMP 102.4 HR 130'S. UNABLE TO MEASURE NIBP-MEAN ONLY MAP TRENDING 50'S LEVOPHED DRIP TITRATED UP TO 20 MCG/MIN. VASOPRESSIN CONTINUES @ 0.04 UNITS. PT SKIN IS VERY PALE AND DIAPHORETIC. LUNGS SLIGHTLY DIMINISHED IN THE BASES, DIFFICULT TO OBTAIN SPO2 PT EXTREMITIES MOTTLED. NPO-PT DRY HEAVING AT TIMES. BUT NO EMESIS. PROTONIX DRIP @ 8 MG/HR. DOMINGO WITH SMALL AMOUNT OF DARK, YELLOW URINE OUTPUT. DR. RUEDA UPDATED TO PT STATUS. STAT H&H SENT. LR BOLUS INITIATED. DR[facility] NOTIFIED.
[2020-12-14 07:56] LABS: Hematocrit 30.2 % (33.0-51.0); Hemoglobin 10.4 g/dL (11.5-16.0)
--- NOTE | 2020-12-14 08:00 | NUR ---
MAP STILL TRENDING LESS THAN 60 DESPITE FLUID BOLUS. NEOSYNEPHRINE DRIP INITIATED-SEE EMAR. BRIEF REPORT GIVEN TO AXEL COHEN AND PT SENT TO MARKETING EFFECTIVENESS MANAGER.
--- NOTE | 2020-12-14 09:20 | NUR ---
PT RETURNED FROM KNUCKLE BENDER S/P COIL TO GASTRIC DUODENAL BRANCH. RIGHT GROIN SITE WITH ANGIOSEAL-SITE CLEAR. DP/PT PULSES ARE FAINT, BUT PT ON THREE VASOPRESSORS AT THIS TIME AND EXTREMTITES ARE MOTTLED. SKIN SLIGHLTY LESS PALE AND MOTTLED THAN PRIOR TO PROCEDURE. HR 120'S. MAP TRENDING LESS THAN 50-NEOSYNEPHRINE TITRATED UP TO 200 MCG/MIN-DR. PEDERSON AND DR. RUEDA CALLED IN ATTEMPT TO UPDATE-MESSAGE LEFT FOR BOTH.
--- NOTE | 2020-12-14 10:30 | NUR ---
DR. ROMAN UPDATED TO CURRENT VS AND STATUS. DISCUSSED WITH HIM THE CONCERN THAT PT REQUIRING 3 PRESSORS STILL TO KEEP MAP>60. DR. TYLER CONSULTED-UPDATED DR. TYLER TO PT CURRENT VS AND STATUS. PT ABDOMEN APPEARS MORE DISTENDED THAN PREVIOUS ASSESSMENT.PT REPORTS 9/10 PAIN DESPITE BEING MEDICATED WITH FENTANYL-SEE EMAR. STAT H&H, LACTIC ACID, AND VBG SENT.
[2020-12-14 10:40] LABS: Hematocrit 26.4 % (33.0-51.0); Hemoglobin 9.1 g/dL (11.5-16.0)
[2020-12-14 10:51] LABS: Base Excess Venous -8.1 mmol/L; Bicarbonate Venous 18.3 mmol/L (24.0-30.0); PO2 Venous 66.4 mmHg (38-42); pH Blood Venous 7.29 (7.34-7.37)
--- NOTE | 2020-12-14 12:00 | NUR ---
PT PALE AND CLAMMY. EXTREMITIES STILL MOTTLED. PT TACHYPNEIC RR 40'S. CIRCUMORAL CYANOSIS NOTED. LEVOPHED @ 20 MCG/MIN, VASOPRESSIN @ 0.04 UNITS/MIN, NEOSYNEPHRINE DRIP @ 250 MCG/KG/MIN AND MAP STILL TRENDING 55-60'S. HR 120'S. DR. TYLER SUMMONED TO BEDSIDE.
--- NOTE | 2020-12-14 12:15 | NUR ---
RSI-PT MED WITH ETOMIDATE 20 MG AND ROCURONIUM 50 MG- EPINEPHRINE DRIP INTITIATED-LR BOLUS INFUSING. REQUESTED 1 UNIT PRBC'S TO BE GIVEN STAT. 7.5 ETT PLACED. VENT AC 24, TV 400, PEEP 5, FIO2 100%-STAT CXR DONE AND ETT RETAPED 21 @ LIP. LEFT FEMORAL ARTERIAL LINE PLACED BY DR. TYLER-BRENDON. WILL TITRATE PRESSORS TO KEEP MAP 60-65. DR. MASON CONSULTED. VERBAL ORDER TO PLACE OGT AND TO PLACE TO LOW CONTINUOUS SUCTION-PRODUCTIVE OF MODERATE AMOUNT OF BROWN/RED LIQUID DRAINAGE. PT TO CT SCAN OF ABDOMEN AND PELVIS WITH CONTRAST VIA BED WITH RT AND RN @ BEDSIDE.
--- NOTE | 2020-12-14 12:35 | NUR ---
PULLED ETT TUBE OUT TO 21 @ LIP AFTER XRAY PER DR TYLER.
[2020-12-14 13:18] LABS: PCO2 Arterial 39.3 mmHg (35-45); PO2 Arterial 123 mmHg (80-100); pH Blood Arterial 7.38 (7.35-7.45)
--- NOTE | 2020-12-14 13:45 | NUR ---
PT RETURNED FROM CT SCAN-TOLERATED WELL. PRBC'S COMPLETED. MAP 60-65 WITH VASOPRESSIN @ 0.04 UNITS/MIN AND LEVOPHED @ 20 MCG/MIN-BOTH JULIO AND EPI ON STANDBY. PT REMAINS FEBRILE-SEE FLOWSHEET FOR FREQUENT VS. PT PARENTS IN FOR BRIEF VISIT-UPDATED TO CURRENT STATUS AND PLAN OF CARE. SRIKANTH FROM P[facility]ARE IN TO ASSIST WITH CONVERSATION-PT FAMILY VERY RECEPTIVE.
[2020-12-14 14:24] LABS: Hematocrit 25.4 % (33.0-51.0); Hemoglobin 8.8 g/dL (11.5-16.0)
[2020-12-14 15:17] LABS: PCO2 Arterial 33.8 mmHg (35-45); PO2 Arterial 96.8 mmHg (80-100); pH Blood Arterial 7.42 (7.35-7.45)
[2020-12-14 15:43] LABS: Hematocrit 28.4 % (33.0-51.0); Hemoglobin 9.9 g/dL (11.5-16.0)
--- NOTE | 2020-12-14 15:45 | NUR ---
FIO2 TITRATED DOWN TO 40% PER RT TAMIKO-BASED ON RESULTS OF 1522 ABG.
--- NOTE | 2020-12-14 16:15 | NUR ---
DR. TYLER IN TO SEE PT. AC DECREASED TO 18- BICARB DRIP DECREASED TO 50 CC/HR.
--- NOTE | 2020-12-14 17:19 | NUR ---
ASSUMED CARE FOR PRIMARY RN TO GO TO CT PATIENT RR >30, O2 SATS MAINTAINING 78-88% AND RESPONSIVE TO TEMP INCREASE TO 100% FIO2, BP WITH MAP <60. JULIO AT 100, EPI OFF, PROPOFOL AT 50. INCREASED FIO2 TO 60%, DISCUSSED WITH DR TYLER. ORDER TO INCREASE PEEP TO 10. RT NOTIFIED. JULIO INCREASED TO 150 THEN 200 (SEE ICU FLOW SHEET FOR TITRATIONS), PROPOFOL TO 55 AND MEDICATED WITH FENTANYL. RR DECREASED TO 24, BP W/ MAPS >60 AND FIO2 MAINTAINING MID-LOW 90'S. PRIMARY RN MONIK UPDATED.
[2020-12-14 18:14] LABS: PCO2 Arterial 30.6 mmHg (35-45); pH Blood Arterial 7.36 (7.35-7.45)
--- NOTE | 2020-12-14 18:15 | NUR ---
DR. TYLER INTO SEE PT. VASOPRESSOR REQUIREMENTS INCREASED AGAIN- LEVOPHED @ 20 MCG/MIN, VASOPRESSIN @ 0.04 UNITS/MIN, NEOSYNEPHRINE @ 200 MCG/MIN, AND EPINEPHRINE @ 10 MCG/MIN - TO KEEP MAP 60. BICARB 150 MEQ CONTINUES @ 150 CC/HR. PT HAD EMESIS AROUND OGT- IRRIGATED OGT AND PLACED TO MEDIUM CONTINUOUS SUCTION- APROX 600 CC THICK, DARK BROWN SECRETIONS-SOME COFFEE GROUND-LIKE APPEARANCE. DR. TYLER CHANGED RR TO 24. ABG DRAWN. DR. TYLER SPOKE WITH DR. MASON WILL CONSIDER OR/PENDING ABG RESULTS. DR. TYLER AND DR. MASON AWARE THAT LACTIC ACID HAS INCREASED TO 5.4.
--- NOTE | 2020-12-14 19:04 | NUR ---
INTRA ABDOMINAL PRESSURE MEASURED @4-RESULTS CALLED TO DR. MASON. HE WILL BE BY TO EVALUATE PT SOON.
--- NOTE | 2020-12-14 19:30 | NUR ---
ASSUMED CARE. BEDSIDE REPORT RECIEVED. PT CONTINUES ON VENTILATOR, SETTINGS: RR24/TV400/PEEP10/60%FI02. OG TUBE IN PLACE ON CONTINUOUS SUCTION, DRAINING BROWN LIQUID. IV PUMPS SETTINGS: LEVOPHED 20 MCG/KG/MIN, PHENYLEPHRINE 200 MCG/MIN, VASOPRESSIN 0.04 UNITS/MIN, PROPOFOL 45 MCG/KG/MIN, SODIUM BICARB 150 ML/HR, PROTONIX 10 ML/HR, NS 10 ML/HR. ARTERIAL BP LINE IN PLACE, LEFT FEMORAL ACCESS, RE-ZEROED LINE. DOMINGO CATHETER IN PLACE, DRAINING VERNELL URINE. DR MASON AT BEDSIDE DURING REPORT. PT FAMILY IN ICU WAITING AREA. WILL CONTINUE TO MONITOR, SEE SHIFT ASSESSMENT.
[2020-12-14 22:23] LABS: Hematocrit 26.6 % (33.0-51.0); Hemoglobin 9.5 g/dL (11.5-16.0)
--- NOTE | 2020-12-15 00:05 | NUR ---
AFTER MULTIPLE DISCUSSIONS WITH THE FAMILY THE DECISION WAS MADE TO WITHDRAW SUPPORT. THE MOM,DAD, DAUGHTERS AND BROTHERS WERE IN ATTENDANCE. A CALL WAS MADE TO TO INFORM HER OF THE FAMILY DECISION TO TERMINATE SUPPORT. WAS IN AGREEMENT. A PLAN WAS OUTLINED WITH THE FAMILY, ALL WERE IN AGREEMENT.
--- NOTE | 2020-12-15 00:30 | NUR ---
0028, ENDOTRACHEAL TUBE WITHDRAWN WITH FAMILY PRESENT IN THE ROOM. ALL IV MEDICATIONS WERE THEN PUT ON STANDBY. PRIOR TO REMOVAL OF ENDOTRACHEAL TUBE, THE PROPOFOL WAS TURNED TO STANDBY. MONITOR REMAINS ON, PER FAMILY WISHES.
--- NOTE | 2020-12-15 01:05 | NUR ---
WENT IN THE ROOM TO CHECK ON PATIENT AND FAMILY, PATIENT APPEARED AT THE FINAL STAGES, AUSCULTAION OF HEART TONES ELICITED NONE, FAMILY WAS MADE AWARE. THERE CONTINUED TO BE A FEW AGONAL REPIRATIONS, THIS WAS EXPLAINED TO THE FAMILY. PT PRONOUNCED AT 0110, WITH MOM AND DAUGHTERS, ONE BROTHER PRESENT. REQUEST MADE FOR PATIENT TO BE TAKEN TO [facility].
== END 2020-12-15 01:10 | DRG 357 ==
LOC: ER 09:55 → ICUW 12-14 01:50
PROVIDERS: Family Medicine; Internal Medicine; Internal Medicine Gastroenterology; Internal Medicine Pulmonary Disease; Physician Assistant; Student in an Organized Health Care Education/Training Program; ADMIT Family Medicine
PROC: 02HV33Z Insertion of Infusion Device into Superior Vena Cava, Percutaneous Approach (ICD-10-PCS; 2020-12-13)
PROC: 3E043XZ Introduction of Vasopressor into Central Vein, Percutaneous Approach (ICD-10-PCS; 2020-12-13)
PROC: 30233K1 Transfusion of Nonautologous Frozen Plasma into Peripheral Vein, Percutaneous Approach (ICD-10-PCS; 2020-12-13)
PROC: 30233N1 Transfusion of Nonautologous Red Blood Cells into Peripheral Vein, Percutaneous Approach (ICD-10-PCS; 2020-12-13)
PROC: 04HY32Z Insertion of Monitoring Device into Lower Artery, Percutaneous Approach (ICD-10-PCS; 2020-12-14)
PROC: 4A133B1 Monitoring of Arterial Pressure, Peripheral, Percutaneous Approach (ICD-10-PCS; 2020-12-14)
PROC: 4A133J1 Monitoring of Arterial Pulse, Peripheral, Percutaneous Approach (ICD-10-PCS; 2020-12-14)
PROC: 5A1935Z Respiratory Ventilation, Less than 24 Consecutive Hours (ICD-10-PCS; 2020-12-14)
PROC: 0BH17EZ Insertion of Endotracheal Airway into Trachea, Via Natural or Artificial Opening (ICD-10-PCS; 2020-12-14)
PROC: 0W3P8ZZ Control Bleeding in Gastrointestinal Tract, Via Natural or Artificial Opening Endoscopic (ICD-10-PCS; 2020-12-14)
PROC: B41J1ZZ Fluoroscopy of Other Lower Arteries using Low Osmolar Contrast (ICD-10-PCS; 2020-12-14)
PROC: 04L23DZ Occlusion of Gastric Artery with Intraluminal Device, Percutaneous Approach (ICD-10-PCS; principal; 2020-12-14 02:30)
DX: K26.4 Chronic or unspecified duodenal ulcer with hemorrhage (principal); S22.43XA Multiple fractures of ribs, bilateral, initial encounter for closed fracture; D62 Acute posthemorrhagic anemia; K50.10 Crohn's disease of large intestine without complications; E87.2 Acidosis; Z51.5 Encounter for palliative care; R57.8 Other shock; F32.9 Major depressive disorder, single episode, unspecified; G89.29 Other chronic pain; K21.9 Gastro-esophageal reflux disease without esophagitis; I10 Essential (primary) hypertension; E78.5 Hyperlipidemia, unspecified; I95.9 Hypotension, unspecified; T38.0X5A Adverse effect of glucocorticoids and synthetic analogues, initial encounter; D72.829 Elevated white blood cell count, unspecified; G62.9 Polyneuropathy, unspecified; G47.00 Insomnia, unspecified; M54.40 Lumbago with sciatica, unspecified side; Z79.52 Long term (current) use of systemic steroids; Z87.891 Personal history of nicotine dependence; Z90.49 Acquired absence of other specified parts of digestive tract; Z88.5 Allergy status to narcotic agent; Z79.899 Other long term (current) drug therapy; X58.XXXA Exposure to other specified factors, initial encounter; Y92.9 Unspecified place or not applicable
CPT/HCPCS: 31500; 36247; 36415; 36430; 36556; 37244; 51702; 70450; 71045; 71046; 71260; 74018; 74177; 75726; 75774; 76937; 80048; 80053; 80069; 82330; 82803; 83605; 84484; 85014; 85018; 85025; 85610; 85730; 86850; 86900; 86901; 86920; 86923; 87040; 93005; 93010; 94002; 96361-59; 96365-59; 96375; 96375-59; 99285-25; A9270; C1751; C1760; C1769; C1887; C1894; C9113; J0171; J1430; J1720; J2250; J2270; J2354; J2370; J2405; J2543; J2704; J2765; J3010; J7030; J7040; J7050; J7060; J7070; J7120; P9016; P9059; Q9967; Q9968